=== PATIENT | female | born 1965 | race Caucasian/White ===

== ENCOUNTER 2016-10-18 19:00 | Emergency (ER) | payer MEDICAID ==
[2016-10-18 19:17] VITALS: BP 155/84
--- NOTE | 2016-10-18 20:29 | EDM.PDOC ---
ED HPI GI/ABDOMINAL - General Chief Complaint: Abdominal Pain Stated Complaint: MODERATE TO SEVER ABDOMIN PAIN RIGHT SIDE Time Seen by Provider: 10/18/16 19:25 Source: Reports: Patient, Family History Limitations: Reports: No limitations - History of Present Illness INITIAL COMMENTS - FREE TEXT/NARRATIVE: 51-year-old female with known of primary biliary cirrhosis always has some mild right upper quadrant abdominal pain intermittently but today has had 2 episodes of very intense focused pain in the right upper quadrant. It started shortly after noon, has been persistent all day. Some radiation into her right flank. No significant nausea or vomiting. No fevers or chills, no bowel changes. Location: RUQ Quality: Reports: cramping, stabbing Severity: moderate Associated Symptoms (-Female): Denies: chest pain, shoulder pain, diarrhea, fever/chills, nausea/vomiting - Related Data Allergies/ADRs: Allergies Allergy/AdvReac Type Severity Reaction Status Date / Time latex Allergy Rash Verified 10/18/16 19:16 Penicillins Allergy Burning Verified 10/18/16 19:16 Sulfa (Sulfonamide Allergy Hives Verified 10/18/16 19:16 Antibiotics) Home Meds: Home Meds Ursodiol [Actigal] 600 - 900 mg PO BID 08/25/15 [History] atorvaSTATin [Lipitor] 40 mg PO BEDTIME 08/25/15 [History] Ibuprofen 400 mg PO Q6H PRN 10/18/16 [History] Loratadine [Claritin] 10 mg PO DAILY PRN 10/18/16 [History] Past Medical History Cardiovascular History: Reports: High cholesterol Gastrointestinal History: Reports: Cirrhosis Genitourinary History: Reports: UTI, recurrent 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: Musculoskeletal History: Reports: Arthritis Dermatologic History: Reports: Eczema - Infectious Disease History Infectious Disease History: Reports: Chicken pox, Mononucleosis - Past Surgical History HEENT Surgical History: Reports: Other (see below) Other HEENT Surgeries/Procedures: left ear drum graft GI Surgical History: Reports: Other (see below) Other GI Surgeries/Procedures: liver biopsy Female Surgical History: Reports: Hysterectomy Social & Family History - Tobacco Use Smoking Status *Q: Current Every Day Smoker Years of Tobacco use: 32 Packs/Tins Daily: 0.5 - Caffeine Use Caffeine Use: Reports: Coffee, Energy drinks, Soda, Tea - Recreational Drug Use Recreational Drug Use: No ED ROS GENERAL - Review of Systems Review Of Systems: See Below Constitutional: Reports: decreased appetite. Denies: fever, chills HEENT: Reports: No symptoms Respiratory: Denies: shortness of breath, pleuritic chest pain Cardiovascular: Denies: Chest pain GI/Abdominal: Reports: Abdominal pain, Decreased appetite. Denies: Nausea, Vomiting : Reports: no symptoms Musculoskeletal: Reports: no symptoms Skin: Reports: no symptoms Neurological: Reports: no symptoms ED EXAM, GI/ABD - Physical Exam Exam: See Below Exam Limited By: No limitations General Appearance: alert, no apparent distress Eyes: bilateral: normal appearance (No jaundice) Respiratory/Chest: no respiratory distress, lungs clear Cardiovascular: regular rate, rhythm GI/Abdominal: normal bowel sounds, soft, tenderness (Patient has tenderness to palpation with a slight amount of guarding in the right upper quadrant, mild positive Otto's) Course - Vital Signs Last Recorded V/S: Last Vital Signs Temp 96.3 F 10/18/16 19:15 Pulse 71 10/18/16 19:15 Resp 16 10/18/16 19:15 BP 155/84 H 10/18/16 19:15 Pulse Ox 96 10/18/16 19:15 - Orders/Labs/Meds Orders: Active Orders 24 hr Category Date Time Status Abdomen Ltd [US] Stat Exams 10/18/16 20:26 Taken Labs: Laboratory Tests 10/18/16 10/18/16 Range/Units 19:45 19:45 WBC 5.6 (4.5-11.0) K/uL RBC 4.20 (3.30-5.50) M/uL Hgb 13.3 (12.0-15.0) g/dL Hct 38.7 (36.0-48.0) % MCV 92 (80-98) fL MCH 32 H (27-31) pg MCHC 34 (32-36) % Plt Count 192 (150-400) K/uL Neut % (Auto) 34 L (36-66) % Lymph % (Auto) 51 H (24-44) % [place] % (Auto) 10 H (2-6) % Eos % (Auto) 5 H (2-4) % Baso % (Auto) 1 (0-1) % Sodium 139 L (140-148) mmol/L Potassium 3.9 (3.6-5.2) mmol/L Chloride 102 (100-108) mmol/L Carbon Dioxide 27 (21-32) mmol/L Anion Gap 13.9 (5.0-14.0) mmol/L BUN 17 (7-18) mg/dL Creatinine 0.8 (0.6-1.0) mg/dL Est Cr Clr Drug Dosing 66.54 mL/min Estimated GFR (MDRD) > 60 (>60) Glucose 88 (74-106) mg/dL Calcium 8.9 (8.5-10.1) mg/dL Total Bilirubin 0.4 (0.2-1.0) mg/dL AST 45 H (15-37) U/L ALT 82 H (12-78) U/L Alkaline Phosphatase 205 H (46-116) U/L Total Protein 7.8 (6.4-8.2) g/dL Albumin 3.9 (3.4-5.0) g/dL Globulin 3.9 H (2.3-3.5) g/dL Albumin/Globulin Ratio 1.0 L (1.2-2.2) Lipase 218 (73-393) U/L - Re-Assessments/Exams Free Text/Narrative Re-Assessment/Exam: 10/18/16 20:29 CBC and CMP were obtained. Lipase was also obtained and is normal. White count is normal but liver enzymes are mildly elevated including alkaline phosphatase. A gallbladder ultrasound was obtained. 10/18/16 21:36 gallbladder ultrasound was negative. Patient continued to feel better was reassured her gallbladder was normal and she did not have pancreatitis. No further treatment was needed and she'll take ibuprofen as required, rechecking if worsening. Departure - Departure Time of Disposition: 21:55 Disposition: Home, Self-Care 01 Condition: good Clinical Impression: Abdominal pain Qualifiers: Abdominal location: right upper quadrant Qualified Code(s): R10.11 - Right upper quadrant pain Instructions: Abdominal Pain, Adult, [id number] Referrals: Silvino Khan MD [Primary Care Provider] - Forms: ED Department Discharge Care Plan Goals: Increase activity and diet as tolerated. Ibuprofen as needed for pain, and return anytime if worsening or concerns. - My Orders Last 24 Hours: My Active Orders 10/18/16 20:26 Abdomen Ltd [US] Stat - Assessment/Plan Last 24 Hours: My Active Orders 10/18/16 20:26 Abdomen Ltd [US] Stat
== END 2016-10-18 21:55 | disposition home or self-care (01) ==
LOC: JP.ED 19:00
DX: R10.11 Right upper quadrant pain (principal); E78.00 Pure hypercholesterolemia, unspecified; F17.210 Nicotine dependence, cigarettes, uncomplicated; Z88.0 Allergy status to penicillin; Z88.2 Allergy status to sulfonamides; Z90.710 Acquired absence of both cervix and uterus; Z91.040 Latex allergy status
CPT/HCPCS: 36415; 76705; 80053; 83690; 85025; 99284-25

== ENCOUNTER 2019-01-12 06:30 | Day surgery (SDC) | payer BC, MEDICAID ==
[2019-01-12] MEDS ORDERED: Sodium Tetradecyl Sulfate 1% 20 MG/2 ML SDV ONE (06:56)
[2019-01-12] MEDS ORDERED: Lidocaine 1% with EPINEPHrine 1:100,000 50 ML MDV ONE (06:57)
[2019-01-12] MEDS ORDERED: Sodium Chloride 0.9% 10 ML ONE (06:57)
[2019-01-12] MEDS ORDERED: Propofol 200 MG/20 ML SDV ONE ×2 (06:58→08:08)
[2019-01-12] MEDS ORDERED: fentaNYL 100 MCG/2 ML SDV ONE (06:58)
[2019-01-12] MEDS ORDERED: Midazolam 1 MG/ML 2 ML SDV ONE (06:58)
[2019-01-12] MEDS ORDERED: Sodium Chloride 0.9% 1,000 ML IV SCH (07:00)
[2019-01-12] MEDS: Lidocaine 1% w/EPINEPHrine 50 ML, Sodium Bicarbonate 5 MEQ in Sodium Chloride 0.9% 950 ML INJECT SCH ×2 (08:03→09:53)
[2019-01-12] MEDS ORDERED: Sodium Chloride 0.9% 10 ML SDV ONE (08:20)
[2019-01-12] MEDS ORDERED: Ketorolac 60 MG/2 ML SDV ONE (08:27)
[2019-01-12] MEDS ORDERED: Ondansetron 4 MG/2 ML SDV ONE (08:27)
[2019-01-12] MEDS ORDERED: Dexamethasone 4 MG/ML SDV ONE (08:27)
[2019-01-12 09:30] VITALS: BP 111/63
--- NOTE | 2019-01-12 10:38 | OR ---
DATE OF PROCEDURE: 01/12/2019 SURGEON: Bari Hayes MD PROCEDURES: 1. Radiofrequency ablation of right lesser saphenous vein. 2. Radiofrequency ablation of left greater saphenous vein. 3. Sclerotherapy left leg, multiple. 4. Sclerotherapy right leg, multiple. 5. Compression wrap, right leg ([id number]). 6. Compression wrap, left leg ([id number]). COMPLICATIONS: None. BOX TOE BUFFER: None. ANESTHESIA: MAC/local. RISKS: Risks, benefits, alternatives, and limitations including, but not limited to infection, bleeding, and DVT formation were explained to the patient ad wished to proceed. PROCEDURE IN DETAIL: The patient was placed in supine position. The right LSV was addressed first. This was accessed using a 21-gauge needle, exchanged for a 35,000th wire, then exchanged for a 7-[place] sheath, which was advanced to 3 cm from the deep junction. Tumescent fluid was injected in a 1-cm jacket around this and verified a second and a third time. Once ablation was complete, direct even pressure was held for 10 minutes, and Dermabond was applied. The left GSV was then addressed in same manner, same fashion, same technique in the same sequence, using the same equipment. The access point was at the knee area due to the tortuosities at distal region. Once this was completed, sclerotherapy was then performed next using 0.33% sodium tetradecyl. This was drawn back to ensure intravascular injection only, no more than 2 mm in one location. Six on the right, seven on the left. Two-layer two-stage compression wrapping with distal proximal gradient to 20 mmHg was then performed. This was in a [id number] fashion. The patient tolerated the procedure well. Bari Hayes MD /[id number]
== END 2019-01-12 09:40 | disposition home or self-care (01) ==
LOC: JP.SDS 06:30
PROVIDERS: ATTEND Surgery
DX: I87.2 Venous insufficiency (chronic) (peripheral) (principal); K74.60 Unspecified cirrhosis of liver; Z88.0 Allergy status to penicillin; Z88.2 Allergy status to sulfonamides; Z88.8 Allergy status to other drugs, medicaments and biological substances; Z91.040 Latex allergy status
CPT/HCPCS: 36471; 36475; J1100; J1642; J1885; J2250; J2405; J2704; J3010; J7030; J3490

== ENCOUNTER 2021-10-03 16:29 | Emergency (ER) | payer BC ==
[2021-10-03] MEDS ORDERED: Diphtheria,Pertussis(Acell),Tetanus Vaccine 0.5 ML Syringe IM ONE (17:16)
[2021-10-03 17:30] VITALS: BP 148/74; PULSE 88
== END 2021-10-03 17:36 | disposition home or self-care (01) ==
LOC: JP.ED 16:29
DX: S61.052A Open bite of left thumb without damage to nail, initial encounter (principal); E78.00 Pure hypercholesterolemia, unspecified; Z88.0 Allergy status to penicillin; Z88.2 Allergy status to sulfonamides; Z91.040 Latex allergy status; Z88.8 Allergy status to other drugs, medicaments and biological substances; Z23 Encounter for immunization; Z72.0 Tobacco use; W54.0XXA Bitten by dog, initial encounter
CPT/HCPCS: 90471; 90715; 99283

== ENCOUNTER 2023-02-05 16:26 | Emergency (ER) | payer BC ==
[2023-02-05 16:45] VITALS: BP 142/67; PULSE 74
[2023-02-05] MEDS ORDERED: Ketorolac 30 MG/ML SDV IM ONE (16:49)
[2023-02-05 16:58] LABS: BASOPHILS PERCENT AUTO 0.5 % (0.1-1.3); EOSINOPHILS ABSOLUTE AUTO 0.17 K/uL (0.00-0.40); EOSINOPHILS PERCENT AUTO 4.2 % (0.0-5.4); HEMATOCRIT 38.3 % (34.3-46.0); HEMOGLOBIN 13.3 g/dL (11.2-15.5); IMMATURE GRAN PERCENT AUTO 0.2 % (0.0-0.7); LYMPHOCYTES ABSOLUTE AUTO 1.85 K/uL (0.8-3.3); LYMPHOCYTES PERCENT AUTO 45.7 % (11.4-47.7); MEAN CORPUSCULAR HEMOGLOBIN 31.7 pg (31.6-35.5); MEAN CORPUSCULAR HGB CONC 34.7 g/dL (31.6-35.5); MEAN CORPUSCULAR VOLUME 91.4 fL (81.4-99.0); MONOCYTES PERCENT AUTO 9.9 % (3.3-12.6); NEUTROPHILS PERCENT AUTO 39.5 % (40.0-78.1); PLATELET COUNT,PLT 179 K/uL (130-375); RED BLOOD CELL COUNT 4.19 M/uL (3.77-5.24); WHITE BLOOD CELL COUNT,WBC 4.1 K/uL (3.2-11.0)
[2023-02-05 16:59] LABS: BASOPHILS ABSOLUTE AUTO 0.02 K/uL (0.00-0.10); IMMATURE GRAN ABSOLUTE AUTO 0.01 K/uL (0.00-0.23)
[2023-02-05 17:20] LABS: A/G RATIO 0.8 (1.2-2.2); ALANINE AMINOTRANSFERASE,ALT 46 U/L (12-78); ALBUMIN 3.2 g/dL (3.4-5.0); ALKALINE PHOSPHATASE 151 U/L (46-116); ANION GAP 11.9 mmol/L (5.0-14.0); ASPARTATE AMNIOTRANSFERASE,AST 41 U/L (15-37); BILIRUBIN TOTAL 0.4 mg/dL (0.2-1.0); BLOOD UREA NITROGEN,BUN 14 mg/dL (7-18); CALCIUM 8.9 mg/dL (8.5-10.1); CARBON DIOXIDE,CO2 29 mmol/L (21-32); CHLORIDE,CL 103 mmol/L (100-108); CREATININE 0.9 mg/dL (0.6-1.0); EST CRCL DRUG DOSING (CG) 54.55 mL/min; ESTIMATED GFR 75 mL/min (>60); GLUCOSE RANDOM 164 mg/dL (74-106); POTASSIUM,K 4.9 mmol/L (3.6-5.2); PROTEIN TOTAL,TP 7.2 g/dL (6.4-8.2); SODIUM,NA 139 mmol/L (140-148)
== END 2023-02-05 18:23 | disposition home or self-care (01) ==
LOC: JP.ED 16:26
DX: G62.9 Polyneuropathy, unspecified (principal); Z79.899 Other long term (current) drug therapy; Z88.0 Allergy status to penicillin; Z88.2 Allergy status to sulfonamides; Z88.8 Allergy status to other drugs, medicaments and biological substances; Z91.040 Latex allergy status
CPT/HCPCS: 36415; 71046; 80053; 84484; 85025; 85379; 93005; 96372; 99285; J1885

== ENCOUNTER 2024-12-09 03:23 | Emergency (ER) | payer BC ==
[2024-12-09 03:34] VITALS: BP 179/79; PULSE 87
[2024-12-09 03:50] LABS: BASOPHILS PERCENT AUTO 0.4 % (0.1-1.3); EOSINOPHILS ABSOLUTE AUTO 0.25 K/uL (0.00-0.40); EOSINOPHILS PERCENT AUTO 5.2 % (0.0-5.4); HEMATOCRIT 37.6 % (34.3-46.0); HEMOGLOBIN 13.1 g/dL (11.2-15.5); IMMATURE GRAN PERCENT AUTO 0.2 % (0.0-0.7); LYMPHOCYTES ABSOLUTE AUTO 1.42 K/uL (0.8-3.3); LYMPHOCYTES PERCENT AUTO 29.3 % (11.4-47.7); MEAN CORPUSCULAR HEMOGLOBIN 32.8 pg (31.6-35.5); MEAN CORPUSCULAR HGB CONC 34.8 g/dL (31.6-35.5); MEAN CORPUSCULAR VOLUME 94.2 fL (81.4-99.0); MONOCYTES ABSOLUTE AUTO 0.45 K/uL (0.20-0.90); MONOCYTES PERCENT AUTO 9.3 % (3.3-12.6); NEUTROPHILS ABSOLUTE AUTO 2.69 K/uL (1.0-7.6); NEUTROPHILS PERCENT AUTO 55.6 % (40.0-78.1); PLATELET COUNT,PLT 170 K/uL (130-375); RED BLOOD CELL COUNT 3.99 M/uL (3.77-5.24); WHITE BLOOD CELL COUNT,WBC 4.8 K/uL (3.2-11.0)
[2024-12-09] MEDS: Aspirin 81 MG Tab.Chew PO ONE (03:50)
[2024-12-09] MEDS: Sodium Chloride 0.9% 10 ML Syringe FLUSH PRN (03:50)
[2024-12-09 03:51] LABS: BASOPHILS ABSOLUTE AUTO 0.02 K/uL (0.00-0.10); IMMATURE GRAN ABSOLUTE AUTO 0.01 K/uL (0.00-0.23)
[2024-12-09 04:11] LABS: A/G RATIO 0.9 (1.2-2.2); ALANINE AMINOTRANSFERASE,ALT 48 U/L (12-78); ALBUMIN 3.6 g/dL (3.4-5.0); ALKALINE PHOSPHATASE 145 U/L (46-116); ASPARTATE AMNIOTRANSFERASE,AST 26 U/L (15-37); BILIRUBIN TOTAL 0.4 mg/dL (0.2-1.0); BLOOD UREA NITROGEN,BUN 20 mg/dL (7-18); CARBON DIOXIDE,CO2 28 mmol/L (21-32); CHLORIDE,CL 100 mmol/L (100-108); CREATININE 0.9 mg/dL (0.6-1.0); EST CRCL DRUG DOSING (CG) 53.89 mL/min; ESTIMATED GFR 74 mL/min (>60); GLUCOSE RANDOM 113 mg/dL (74-106); POTASSIUM,K 4.1 mmol/L (3.6-5.2); PROTEIN TOTAL,TP 7.5 g/dL (6.4-8.2); SODIUM,NA 138 mmol/L (140-148)
[2024-12-09 04:14] LABS: ANION GAP 14.1 mmol/L (5.0-14.0)
== END 2024-12-09 04:53 | disposition home or self-care (01) ==
LOC: JP.ED 03:23
DX: R20.2 Paresthesia of skin (principal)
CPT/HCPCS: 36415; 70450; 71046; 80053; 84484; 85025; 93005; 99284; A9270